=== PATIENT | male | born 1945 | race Caucasian/White ===

== ENCOUNTER 2018-04-07 18:45 | Emergency (ER) | payer MEDICARE, BC ==
[2018-04-07] MEDS ORDERED: Sodium Chloride 0.9% 10 ML Syringe FLUSH PRN (19:02)
--- NOTE | 2018-04-07 20:14 | EDM.PDOC ---
ED HPI GENERAL MEDICAL PROBLEM - General Chief Complaint: Syncope Stated Complaint: [facility] Time Seen by Provider: 04/07/18 18:56 Source of Information: Reports: Patient, RN Notes Reviewed - History of Present Illness INITIAL COMMENTS - FREE TEXT/NARRATIVE: 72 year old male suffered near syncope this evening about 90 minutes ago. Was standing in line at a benefit dinner in [place], started to feel lightheaded and dizzy, was going to set his plate down on a table but fell backward before he could set the plate down and sit down. He states he did not pass out completely but was weak lightheaded for 5 to 10 minutes before he felt more normal. He states he felt well enough to get up but bystanders would not let him do that. Ambulance was called. His BP was not low on their arrival. He was transported here without further incident. He did hit the back of his head against a table. No current [place]. He had no chest or abd pain, no palpitations. Hx of Htn and Type 2 diabetes. He had not eaten since morning. Had not drank a lot of water today. Does drink some coffee. Treatments INHALATION THERAPIST: Reports: Cervical Collar - Related Data Allergies Allergy/AdvReac Type Severity Reaction Status Date / Time No Known Allergies Allergy Verified 04/07/18 18:47 Home Meds: Home Meds Aspirin [Halfprin] 81 mg PO DAILY 04/07/18 [History] Lisinopril/Hydrochlorothiazide [Lisinopril-Hctz 20-25 mg Tab] 20 - 25 mg PO DAILY 04/07/18 [History] Potassium Chloride 20 meq PO DAILY 04/07/18 [History] amLODIPine Besylate [Amlodipine Besylate] 5 mg PO DAILY 04/07/18 [History] atorvaSTATin [Lipitor] 20 mg PO DAILY 04/07/18 [History] glipiZIDE [Glipizide ER] 10 mg PO DAILY 04/07/18 [History] metFORMIN HCl [Metformin HCl] 1,000 mg PO BID 04/07/18 [History] Past Medical History Cardiovascular History: Reports: Hypertension Endocrine/Metabolic History: Reports: Diabetes, Type II Social & Family History - Tobacco Use Smoking Status *Q: Never Smoker - Recreational Drug Use Recreational Drug Use: No ED ROS GENERAL - Review of Systems Review Of Systems: See Below Constitutional: Denies: Fever, Chills, Diaphoresis HEENT: Denies: Throat Pain Respiratory: Denies: Shortness of Breath, Wheezing, Pleuritic Chest Pain, Cough Cardiovascular: Denies: Chest Pain GI/Abdominal: Denies: Abdominal Pain, Diarrhea, Nausea, Vomiting : Reports: No Symptoms Musculoskeletal: Denies: Neck Pain, Back Pain Skin: Reports: No Symptoms Neurological: Reports: Dizziness (gone). Denies: Headache, Numbness, Tingling, Trouble Speaking, Difficulty Walking, Weakness - Physical Exam Exam: See Below General Appearance: Alert, No Apparent Distress Eye Exam: Bilateral Eye: PERRL Ears: Normal External Exam Nose: Normal Inspection Throat/Mouth: Normal Inspection Head Exam: Scalp Swelling (very small area of swelling post. scalp, no abrasion or lac visible, no blood). No: Facial Swelling Respiratory/Chest: No Respiratory Distress, Lungs Clear, Normal Breath Sounds Cardiovascular: Regular Rate, Rhythm GI/Abdominal: Soft, Non-Tender Neuro Exam (Abbreviated): Oriented, No Motor/Sensory Deficits Extremities: Normal Inspection, Normal Range of Motion Skin Exam: Warm, Dry, Normal Color EKG INTERPRETATION EKG Date: 04/07/18 Rhythm: NSR [place]: Normal P-Wave: Present QRS: Other (small q waves leads III, V2 and V3) ST-T: Normal Course - Vital Signs Last Recorded V/S: Last Vital Signs Temp 98.3 F 04/07/18 18:47 Pulse 96 04/07/18 18:47 Resp 17 04/07/18 18:47 BP 198/106 H 04/07/18 18:47 Pulse Ox 95 04/07/18 18:47 Orthostatic Blood Pressure [ 188/92 Standing] Orthostatic Blood Pressure [ 180/88 Supine] - Orders/Labs/Meds Orders: Active Orders 24 hr Category Date Time Status EKG 12 Lead [EKG Documentation Completion] [] STAT Care 04/07/18 19:03 Active Holter Monitor 48 Hours [RC] .PRN Care 04/07/18 22:02 Active Peripheral IV Care [RC] . DIRECTED Care 04/07/18 19:03 Active Ang Neck [CT] Stat Exams 04/07/18 21:18 Taken Dextrose 5%-Lactated Ringers 500 ml Med 04/07/18 21:15 Active IV ASDIRECTED Sodium Chloride 0.9% [Normal Saline] 100 ml Med 04/07/18 21:30 Active IV ASDIRECTED Sodium Chloride 0.9% [Saline Flush] Med 04/07/18 19:02 Active 10 ml FLUSH ASDIRECTED PRN Peripheral IV Insertion Adult [OM.PC] Stat Oth 04/07/18 19:03 Ordered Medication Orders Dextrose/Lactated Ringer's (Dextrose 5%-Lactated Ringers) 500 mls @ 999 mls/hr IV ASDIRECTED GONZALES Last Admin: 04/07/18 21:22 Dose: 999 mls/hr Sodium Chloride (Normal Saline) 100 mls @ 4 mls/sec IV ASDIRECTED GONZALES Last Admin: 04/07/18 22:27 Dose: 4 mls/sec Sodium Chloride (Saline Flush) 10 ml FLUSH ASDIRECTED PRN PRN Reason: Keep Vein Open Last Admin: 04/07/18 19:27 Dose: 10 ml Labs: Laboratory Tests 04/07/18 04/07/18 Range/Units 19:22 19:22 WBC 7.87 (4.23-9.07) K/mm3 RBC 4.98 (4.63-6.08) M/mm3 Hgb 14.6 (13.7-17.5) gm/L Hct 42.5 (40.1-51.0) % MCV 85.3 (79.0-92.2) fl MCH 29.3 (25.7-32.2) pg MCHC 34.4 (32.2-35.5) g/dl RDW Std Deviation 40.8 (35.1-43.9) fL Plt Count 264 (163-337) K/mm3 MPV 9.6 (9.4-12.3) fl Neut % (Auto) 70.7 H (34.0-67.9) % Lymph % (Auto) 13.9 L (21.8-53.1) % [place] % (Auto) 12.6 H (5.3-12.2) % Eos % (Auto) 2.4 (0.8-7.0) Baso % (Auto) 0.1 (0.1-1.2) % Neut # (Auto) 5.57 H (1.78-5.38) K/mm3 Lymph # (Auto) 1.09 L (1.32-3.57) K/mm3 [place] # (Auto) 0.99 H (0.30-0.82) K/mm3 Eos # (Auto) 0.19 (0.04-0.54) K/mm3 Baso # (Auto) 0.01 (0.01-0.08) K/mm3 Sodium 141 (136-145) mEq/L Potassium 3.4 L (3.5-5.1) mEq/L Chloride 102 (98-107) mEq/L Carbon Dioxide 28 (21-32) mEq/L Anion Gap 14.4 (5-15) BUN 14 (7-18) mg/dL Creatinine 0.9 (0.7-1.3) mg/dL Est Cr Clr Drug Dosing 81.34 mL/min Estimated GFR (MDRD) > 60 (>60) mL/min BUN/Creatinine Ratio 15.6 (14-18) Glucose 145 H (80-115) mg/dL Calcium 9.5 (8.5-10.1) mg/dL Total Bilirubin 0.4 (0.2-1.0) mg/dL AST 16 (15-37) U/L ALT 32 (16-63) U/L Alkaline Phosphatase 75 (46-116) U/L Troponin I < 0.017 (0.00-0.056) ng/mL Total Protein 7.6 (6.4-8.2) g/dl Albumin 4.1 (3.4-5.0) g/dl Globulin 3.5 gm/dL Albumin/Globulin Ratio 1.2 (1-2) Meds: Medications Generic Name Dose Route Start Last Admin Trade Name Freq PRN Reason Stop Dose Admin Dextrose/Lactated Ringer's 500 mls @ 999 mls/hr 04/07/18 21:15 04/07/18 21:22 Dextrose 5%-Lactated Ringers IV 999 mls/hr ASDIRECTED GONZALES Administration Sodium Chloride 100 mls @ 4 mls/sec 04/07/18 21:30 04/07/18 22:27 Normal Saline IV 4 mls/sec ASDIRECTED GONZALES Administration Sodium Chloride 10 ml 04/07/18 19:02 04/07/18 19:27 Saline Flush FLUSH 10 ml ASDIRECTED PRN Administration Keep Vein Open Discontinued Medications Generic Name Dose Route Start Last Admin Trade Name Freq PRN Reason Stop Dose Admin Iopamidol 100 ml 04/07/18 21:28 04/07/18 22:23 Isovue-370 (76%) IVPUSH 04/07/18 21:29 100 ml ONETIME ONE Administration - Re-Assessments/Exams Free Text/Narrative Re-Assessment/Exam: 04/07/18 23:47 labs including troponin came back normal, no major change in BP lying to standing, BP readings have remained relatively high. With [place] living [place] out of [place] I did have concern for possible arrythmia or carotid or vertebral artery stenosis. CTA of neck done shows no blockage of carotid of vertebral arteries. He was with us for over 4 hours, no ectopy or rythm disturbance. Discharged home with 48 hr holter moniter. Discharge instr. as documented. Departure - Departure Time of Disposition: 23:00 Disposition: Home, Self-Care 01 Condition: Fair Clinical Impression: Near syncope - Discharge Information Instructions: Near-Syncope, [id number] Referrals: Geeta Alba PA-C [Primary Care Provider] - Forms: ED Department Discharge Additional Instructions: rest, drink plenty of water to maintain hydration, continue current medications as prescribed. 48 hour holter moniter. Follow up with Rosaline at clinic in about 2 to 3 days for recheck, call for appt. The CT angiogram of you neck vessels did not show any significant blockage. Return to ED as needed if symptoms worsening in any way. - My Orders Last 24 Hours: My Active Orders 04/07/18 19:02 Sodium Chloride 0.9% [Saline Flush] 10 ml FLUSH ASDIRECTED PRN 04/07/18 19:03 EKG 12 Lead [EKG Documentation Completion] [RC] STAT Peripheral IV Care [RC] . DIRECTED Peripheral IV Insertion Adult [OM.PC] Stat 04/07/18 21:15 Dextrose 5%-Lactated Ringers 500 ml IV ASDIRECTED 04/07/18 21:18 Ang Neck [CT] Stat 04/07/18 21:30 Sodium Chloride 0.9% [Normal Saline] 100 ml IV ASDIRECTED 04/07/18 22:02 Holter Monitor 48 Hours [RC] .PRN - Assessment/Plan Last 24 Hours: My Active Orders 04/07/18 19:02 Sodium Chloride 0.9% [Saline Flush] 10 ml FLUSH ASDIRECTED PRN 04/07/18 19:03 EKG 12 Lead [EKG Documentation Completion] [RC] STAT Peripheral IV Care [RC] . DIRECTED Peripheral IV Insertion Adult [OM.PC] Stat 04/07/18 21:15 Dextrose 5%-Lactated Ringers 500 ml IV ASDIRECTED 04/07/18 21:18 Ang Neck [CT] Stat 04/07/18 21:30 Sodium Chloride 0.9% [Normal Saline] 100 ml IV ASDIRECTED 04/07/18 22:02 Holter Monitor 48 Hours [RC] .PRN
[2018-04-07] MEDS ORDERED: Iopamidol 755 Mg/ML 100 ML Bottle IVPUSH ONE (21:28)
[2018-04-07] MEDS ORDERED: Sodium Chloride 0.9% 100 ML IV SCH (21:30)
--- NOTE | 2018-04-08 06:52 | CT ---
CT neck Technique: Multiple axial sections through the neck were obtained. Study performed as an angiogram protocol. Multiple MIP images were obtained. Comparison: No previous study. Findings: Both vertebral arteries are patent. No focal stenosis or dissection is seen. Normal appearance of the vertebral arteries seen into the basilar artery. Both common carotid arteries appear within normal limits. No focal stenosis is seen. Mild atheromatous irregularity is seen within the carotid bulbs on both sides. No dissection is seen. Both external carotid artery show mild atheromatous change proximally. No focal stenosis or dissection is seen. Both internal carotid artery show proximal atheromatous irregularity. No focal occlusion or dissection is seen. Other findings: Multiple nodules are noted within the thyroid gland most likely due to multinodular goiter. Preliminary report mentions several lung findings which I believe are incidental. Impression: 1. Atheromatous irregularity within both carotid bulbs as well as within the origin of both external and internal carotid arteries. No focal stenosis or dissection is seen. 2. Multinodular goiter. 3. Preliminary report mentions some lung findings which I believe are incidental. Diagnostic code #2 I agree with preliminary report from [facility], finalized on 04/07/18, 11:48 PM Central Time
== END 2018-04-07 23:13 | disposition home or self-care (01) ==
LOC: JD.ED 18:45
DX: R55 Syncope and collapse (principal); I10 Essential (primary) hypertension; E11.9 Type 2 diabetes mellitus without complications; Z79.899 Other long term (current) drug therapy; W18.39XA Other fall on same level, initial encounter; Z79.84 Long term (current) use of oral hypoglycemic drugs
CPT/HCPCS: 36415; 70498; 80053; 84484; 85025; 93005; 93225; 93226; 96360; 96361; 99285; J7030; J7042; Q9967; 93010; 99284

== ENCOUNTER 2023-03-08 07:32 | Day surgery (SDC) | payer MEDICARE, BC ==
[~2023-03-08 07:32] MED LIST: Lactated Ringers 1,000 ML IV SCH; Propofol 200 MG/20 ML SDV ONE; Sodium Chloride 0.9% 10 ML Syringe FLUSH PRN; Sodium Chloride 0.9% 10 ML Syringe FLUSH SCH
[2023-03-08] MEDS ORDERED: Lidocaine 1% 4 ML ONE (08:40)
[2023-03-08 08:49] LABS: ALANINE AMINOTRANSFERASE,ALT 21 U/L (16-63); ALBUMIN 3.7 g/dl (3.4-5.0); ALKALINE PHOSPHATASE 64 U/L (46-116); ANION GAP 20.6 (5-15); ASPARTATE AMNIOTRANSFERASE,AST 19 U/L (15-37); BILIRUBIN TOTAL 1.1 mg/dL (0.2-1.0); BLOOD UREA NITROGEN,BUN 15 mg/dL (7-18); CALCIUM 9.1 mg/dL (8.5-10.1); CARBON DIOXIDE,CO2 24 mEq/L (21-32); CHLORIDE,CL 101 mEq/L (98-107); ESTIMATED GFR 78 mL/min (>60); GLUCOSE RANDOM 109 mg/dL (70-99); POTASSIUM,K 3.6 mEq/L (3.5-5.1); PROTEIN TOTAL,TP 7.3 g/dl (6.4-8.2); SODIUM,NA 142 mEq/L (136-145)
[2023-03-08] MEDS ORDERED: Propofol 200 MG/20 ML SDV ONE (09:17)
== END 2023-03-08 10:05 | disposition home or self-care (01) ==
LOC: JD.SDS 07:32
PROVIDERS: ATTEND Specialist
DX: Z12.11 Encounter for screening for malignant neoplasm of colon (principal); E11.9 Type 2 diabetes mellitus without complications; I10 Essential (primary) hypertension; E78.5 Hyperlipidemia, unspecified; Z72.0 Tobacco use; Z79.84 Long term (current) use of oral hypoglycemic drugs; Z79.899 Other long term (current) drug therapy; Z98.890 Other specified postprocedural states
CPT/HCPCS: 36415; 80053; G0121; J2704; J7120; J3490